=== PATIENT | female | born 1950 | race Caucasian/White ===

== ENCOUNTER 2016-07-16 14:52 | Emergency (ER) | payer OTHER ==
[~2016-07-16] VITALS: Ht 157.5 cm; Wt 96.4 kg
[~2016-07-16 14:52] MED LIST: NAPROXEN500 MG PO; NITROSTAT0.4 MG SL; ULTRAM50 MG PO
[2016-07-16 17:24] LABS: HEMATOCRIT 37.4 % (36.0-46.0); MCH 30.2 PG (29.0-34.0); MCV 88.8 FL (83-99); RBC DIS.WIDTH-CV 14.9 % (11.8-14.6); RBC DIS.WIDTH-SD 47.2 % (39-53); RED BLOOD COUNT 4.21 M/uL (3.80-5.20); WHITE BLOOD COUNT 2.6 K/uL (4.1-10.2)
[2016-07-16 17:26] LABS: ADD MIUA? YES; BILIRUBIN NEGATIVE; BLOOD NEGATIVE; COLOR YELLOW ((YELLOW)); GLUCOSE (STRIP) NEGATIVE; KETONES NEGATIVE; LEUKOCYTES MODERATE; NITRITE NEGATIVE; PROTEIN (STRIP) NEGATIVE; SPECIFIC GRAVITY 1.021 (1.000-1.030)
[2016-07-16 17:30] LABS: INTER. NORMALIZED RATIO 1.1; PROTHROMBIN TIME 11.4 (9.2-11.2); PTT 25.4 (25-32)
[2016-07-16 17:37] LABS: CHLORIDE 108 mEq/L (99-109); POTASSIUM 3.3 mEq/L (3.7-5.4); SODIUM 143 mEq/L (136-147)
[2016-07-16 17:39] LABS: GLUCOSE 107 mg/dL (70-99)
[2016-07-16 17:40] LABS: ANION GAP 10 MEQ/L (2-14)
[2016-07-16 17:41] LABS: TOTAL BILIRUBIN 1.1 mg/dL (0.0-1.0)
[2016-07-16 17:43] LABS: ALKALINE PHOSPHATASE 142 IU/L (3-129); GFR ESTIMATE (CALCULATED) 53 mL/min/; TOTAL BILIRUBIN 1.1 mg/dL (0.0-1.0)
[2016-07-16 17:44] LABS: ALKALINE PHOSPHATASE 141 IU/L (3-129); UREA NITROGEN (BUN) 8 mg/dL (9-23)
[2016-07-16 17:47] LABS: DIRECT BILIRUBIN 0.4 mg/dL (0.0-0.3)
[2016-07-16 18:01] LABS: HEMATOLOGY COMMENT 1 SMEAR COMPATIBLE; MEAN PLAT.VOLUME 12.3 uM^3 (9.5-12.4); PLATELET COUNT 67 K/uL (156-360)
[2016-07-16 18:48] LABS: EPITHELIAL CELLS 1+; MUCUS NONE SEEN; RED BLOOD CELLS RARE /HPF (0-5)
[2016-07-16 18:49] LABS: BACTERIA RARE; CASTS NONE SEEN /LPF; CRYSTALS NONE SEEN; UCUL ADDED? NO
[2016-07-16] MEDS ORDERED: ZOFRAN ODT4 MG PO (20:42)
[2016-07-16] MEDS ORDERED: BENTYL20 MG PO (20:42)
[2016-07-16 21:10] VITALS: BP 150/70
== END 2016-07-16 21:12 | disposition home or self-care (01) ==
LOC: EME 14:52
PROVIDERS: Nurse Practitioner Family
DX: R10.10 Upper abdominal pain, unspecified (principal); K74.60 Unspecified cirrhosis of liver; K76.6 Portal hypertension; D69.6 Thrombocytopenia, unspecified; E11.9 Type 2 diabetes mellitus without complications; E78.5 Hyperlipidemia, unspecified; I10 Essential (primary) hypertension; K21.9 Gastro-esophageal reflux disease without esophagitis; I25.2 Old myocardial infarction; E03.9 Hypothyroidism, unspecified
CPT/HCPCS: 74177; 80053; 80076; 81003; 82140; 85027; 85610; 85730; 99281; 99284; J1885; J2270; J7040